=== PATIENT | male | born 1965 | race Caucasian/White ===

== ENCOUNTER → 2017-07-06 | Day surgery (SDC) | payer OTHER ==
[~2017-07-06] MED LIST: LACTATED RINGER'S 1000 ML INJ 1,000 ML IV ONE; PROPOFOL 500 MG/50 ML BTL IV ONE
--- NOTE | 2017-07-06 08:43 | GIPROC ---
[facility] [address] [facility], [address] COLONOSCOPY PROCEDURE REPORT EXAM DATE: 07/06/2017 PATIENT NAME: Hugo Vaca MR #: [id number] BIRTHDATE: 1965 ENDOSCOPIST: David Spear MD ORDER #: [id number] SKETCH ARTIST: Rommel Mcnair RN and Melissa Peña RN STATUS: outpatient INDICATIONS: The patient is a 52 yr old male here for a colonoscopy due to average risk patient for colon cancer PROCEDURE PERFORMED: Colonoscopy with biopsy MEDICATIONS: None and Per Anesthesia. PREP QUALITY: good ESTIMATED BLOOD LOSS: None CONSENT: The patient understands the risks and benefits of the procedure and understands that these risks include, but are not limited to: sedation, allergic reaction, infection, perforation and/or bleeding. Alternative means of evaluation and treatment include, among others: physical exam, x-rays, and/or surgical intervention. The patient elects to proceed with this endoscopic procedure. medical equipment was checked for proper function. Hand hygiene and appropriate measures for infection prevention was taken. After the risks, benefits and alternatives of the procedure were thoroughly explained, Informed consent was verified, confirmed and timeout was successfully executed by the treatment team. A digital exam revealed no abnormalities of the rectum The EC-[id number] ([id number]) endoscope was introduced through the anus and advanced to the cecum, which was identified by both the appendix and ileocecal valve. The instrument was then slowly withdrawn as the colon was fully examined. COLON FINDINGS: A small smooth sessile polyp was found at the cecum. A polypectomy was performed with cold forceps. The resection was complete and the polyp tissue was completely retrieved. Mild diverticulosis was noted in the sigmoid colon. The colon mucosa was otherwise normal. Retroflexed views revealed no abnormalities The scope was then completely withdrawn from the patient and the procedure terminated. PROCEDURE WITHDRAWAL TIME:11.8minutes ADVERSE EVENTS: There were no complications. IMPRESSIONS: 1. A small sessile polyp was found at the cecum; polypectomy was performed with cold forceps 2. Mild diverticulosis was noted in the sigmoid colon 3. The colon mucosa was otherwise normal 4. Retroflexed views revealed no abnormalities 5. Revealed no abnormalities of the rectum RECOMMENDATIONS: 1. Await biopsy results. Biopsy results will not be ready for 7-10 days. If you don't hear from us in two weeks, call our office for results. 2. High fiber diet. Avoid nuts, seeds, and popcorn. Chew your food well. 3. Yearly hemoccult 4. Follow-up: GI Clinic PRN RECALL: Return 5 years Colonoscopy David Spear MD eSigned: David Spear MD 07/06/2017 8:43 AM cc: Evangelist Henley M.D and Zee Jones [facility] Nicole
== END | disposition home or self-care (01) ==
LOC: ESDC 06:49
PROVIDERS: ATTEND Internal Medicine Gastroenterology
DX: Z12.11 Encounter for screening for malignant neoplasm of colon (principal); D12.0 Benign neoplasm of cecum; K57.90 Diverticulosis of intestine, part unspecified, without perforation or abscess without bleeding; R73.09 Other abnormal glucose; I10 Essential (primary) hypertension; E78.5 Hyperlipidemia, unspecified; E66.01 Morbid (severe) obesity due to excess calories
CPT/HCPCS: 00810; 45380; 82948; 88305; J7120